=== PATIENT | female | born 1985 | race African-American/Black ===

== ENCOUNTER 2016-11-12 15:23 | Observation (INO) | payer BC ==
[~2016-11-12] VITALS: Ht 172.7 cm; Wt 100.0 kg
[~2016-11-12 15:23] MED LIST: PREN0.01 PO
[2016-11-12 15:29] VITALS: BP 120/75; PULSE 68; RESP 22; TEMP 97.8; O2SAT 100
[2016-11-12 15:41] VITALS: RESP 20; O2SAT 100
[2016-11-12] MEDS ORDERED: LORazepam 2 MG/ML VIAL IV PUSH ONE (15:45)
[2016-11-12] MEDS ORDERED: SODIUM CHLORIDE 0.9% FLUSH 10 ML FLUSH IVF PRN (15:45)
--- NOTE | 2016-11-12 15:49 | PD ---
HPI Chief Complaint: Chest Pain Time Seen by Provider: 15:35 Travel History International Travel<30 days: No Contact w/Intl Traveler<30days: No Traveled to known affect area: No History of Present Illness HPI This is a 31-year-old female with no significant past medical history presents via EMS for evaluation of chest pain. Symptoms were this morning at 7 AM when she was sitting feeding her child. She describes it as a substernal chest pressure which is constant, no relieving factors. Somewhat aggravated by inspiration. She does endorse some anxiety in regards to recently moving here from [facility]. She was seen at an urgent care center and sent here via EMS for further evaluation. She received 1 sublingual nitroglycerin via EMS and full dose aspirin at the urgent care center. In addition to the chest pressure she is experiencing some nausea and lightheadedness. She denies any cough or congestion, shortness of breath, abdominal pain, vomiting, fevers or chills, unilateral calf pain or swelling, headache, blurred vision. She denies any drug use. No tobacco use. No family history of cardiac disease. No personal history of coronary artery disease, hypertension, diabetes, hyperlipidemia. She does report that she has been traveling around the country for work on a regular basis over the past several months, primarily via airplane. No other complaints. PFSH Past Medical History Cancer: No Diabetes: No Hepatitis: No Hiatal Hernia: No Hypertension: No Respiratory: No Thyroid Disease: No Dilation and Curettage (D&C): Yes (AND OTHER PROCEEDURES) Past Surgical History Cardiac Surgery: Yes (HEART SX AN INFANT (NOT SURE WHAT SX )) Gynecologic Surgery: Yes Oral Surgery: Yes (EGD) Pacemaker: No Other Surgery: Yes (FILOPEAN TUBES OPENED, OVARIAN CYSTS REMOVED 12/2011) Social History Alcohol Use: Yes (OCC) Tobacco Use: No Substance Use: No Allergies-Medications (Allergen,Severity, Reaction): Coded Allergies: No Known Allergies (Unverified , 12/19/13) Reported Meds & Prescriptions Reported Meds & Active Scripts Active No Active Prescriptions or Reported Medications Review of Systems Except as stated in HPI: all other systems reviewed are Neg Physical Exam Narrative GENERAL: Well-developed well-nourished female in no acute distress. She seems anxious on initial examination. SKIN: Warm and dry. HEAD: Atraumatic. Normocephalic. EYES: Pupils equal and round. No scleral icterus. No injection or drainage. ENT: No nasal bleeding or discharge. Mucous membranes pink and moist. NECK: Trachea midline. No JVD. CARDIOVASCULAR: Regular rate and rhythm. No murmur appreciated. RESPIRATORY: No accessory muscle use. Clear to auscultation. Breath sounds equal bilaterally. GASTROINTESTINAL: Abdomen soft, non-tender, nondistended. Hepatic and splenic margins not palpable. MUSCULOSKELETAL: No obvious deformities. There is no Lower extremity pitting edema. Negative Homans. NEUROLOGICAL: Awake and alert. No obvious cranial nerve deficits. Motor grossly within normal limits. Normal speech. PSYCHIATRIC: Appropriate mood and affect; insight and judgment normal. Data Data Last Documented VS Vital Signs Date Time Temp Pulse Resp B/P Pulse Ox O2 Delivery O2 Flow Rate FiO2 11/12/16 19:50 86 18 115/70 97 Room Air 11/12/16 15:29 97.8 Orders Electrocardiogram (11/12/16 15:34) Basic Metabolic Panel (Bmp) (11/12/16 15:34) Ckmb (Isoenzyme) Profile (11/12/16 15:34) Complete Blood Count With Diff (11/12/16 15:34) D-Dimer (11/12/16 15:34) Magnesium (Mg) (11/12/16 15:34) Prothrombin Time / Inr (Pt) (11/12/16 15:34) Act Partial Throm Time (Ptt) (11/12/16 15:34) Troponin I (11/12/16 15:34) Chest, Single Ap (11/12/16 15:34) Ecg Monitoring (11/12/16 15:34) Bilateral Bp Monitoring (11/12/16 15:34) Iv Access Insert/Monitor (11/12/16 15:34) Oximetry (11/12/16 15:34) Oxygen Administration (11/12/16 15:34) Sodium Chloride 0.9% Flush (Ns Flush) (11/12/16 15:45) Ed Urine Pregnancytest Poc (11/12/16 15:34) Lorazepam Inj (Ativan Inj) (11/12/16 15:45) Ondansetron Inj (Zofran Inj) (11/12/16 16:00) CKMB (11/12/16 15:45) CKMB% (11/12/16 15:45) Ct Pulmonary Angiogram (11/12/16 17:07) Iohexol 350 Inj (Omnipaque 350 Inj) (11/12/16 17:49) Ketorolac Inj (Toradol Inj) (11/12/16 18:15) Acetaminophen (Tylenol) (11/12/16 20:00) Admit Order (Ed Use Only) (11/12/16 19:57) Activity Bed Rest With Brp (11/12/16 19:57) Vital Signs (Adult) Q4H (11/12/16 19:57) Cardiac Rhythm .As Directed (11/12/16 19:57) Notify Dr: Other .PRN (11/12/16 19:57) Notify DrCurt Parameters (11/12/16 19:57) Resp Oxygen Nasal Cannula (11/12/16 ) Ckmb (Isoenzyme) Profile (11/12/16 19:57) Ckmb (Isoenzyme) Profile (11/12/16 22:57) Troponin I (11/12/16 19:57) Troponin I (11/12/16 22:57) Electrocardiogram (11/12/16 19:57) Electrocardiogram (11/12/16 22:57) ^ Obtain (11/12/16 19:57) Sodium Chloride 0.9% Flush (Ns Flush) (11/12/16 20:00) Sodium Chloride 0.9% Flush (Ns Flush) (11/12/16 21:00) Acetaminophen (Tylenol) (11/12/16 20:00) Ondansetron Inj (Zofran Inj) (11/12/16 20:00) Pasteurizer Helper / Telemetry JUICE.Q8H (11/12/16 19:57) Npo After Midnight W/ Po Meds (11/13/16 Breakfast) Ondansetron Inj (Zofran Inj) (11/12/16 20:00) Diet Heart Healthy (11/12/16 Dinner) Labs Laboratory Tests Test 11/12/16 15:45 White Blood Count 5.0 TH/MM3 Red Blood Count 3.86 MIL/MM3 Hemoglobin 11.4 GM/DL Hematocrit 33.7 % Mean Corpuscular Volume 87.3 FL Mean Corpuscular Hemoglobin 29.4 PG Mean Corpuscular Hemoglobin 33.7 % Concent Red Cell Distribution Width 13.9 % Platelet Count 285 TH/MM3 Mean Platelet Volume 9.1 FL Neutrophils (%) (Auto) 42.4 % Lymphocytes (%) (Auto) 42.7 % Monocytes (%) (Auto) 12.2 % Eosinophils (%) (Auto) 2.0 % Basophils (%) (Auto) 0.7 % Neutrophils # (Auto) 2.1 TH/MM3 Lymphocytes # (Auto) 2.1 TH/MM3 Monocytes # (Auto) 0.6 TH/MM3 Eosinophils # (Auto) 0.1 TH/MM3 Basophils # (Auto) 0.0 TH/MM3 CBC Comment DIFF FINAL Differential Comment Prothrombin Time 11.4 SEC Prothromb Time International 1.0 RATIO Ratio Activated Partial 25.1 SEC Thromboplast Time D-Dimer Quantitative (PE/DVT) 0.75 MG/L FEU Sodium Level 139 MEQ/L Potassium Level 4.2 MEQ/L Chloride Level 104 MEQ/L Carbon Dioxide Level 28.6 MEQ/L Anion Gap 6 MEQ/L Blood Urea Nitrogen 14 MG/DL Creatinine 0.93 MG/DL Estimat Glomerular Filtration 85 ML/MIN Rate Random Glucose 85 MG/DL Calcium Level 9.0 MG/DL Magnesium Level 2.0 MG/DL Total Creatine Kinase 464 U/L Creatine Kinase MB 3.7 NG/ML Creatine Kinase MB % 0.8 % Troponin I LESS THAN 0.02 NG/ML MDM Medical Decision Making Medical Screen Exam Complete: Yes Emergency Medical Condition: Yes Medical Record Reviewed: Yes Interpretation(s) EKG sinus rhythm, LBBB BMP unremarkable CK 464 Troponin negative Differential Diagnosis Anxiety, acute coronary syndrome, pulmonary embolism, aortic dissection, myocarditis, pericarditis, spontaneous pneumothorax, versus Narrative Course 31-year-old female with no significant past medical history presents with several hours duration of substernal chest pressure, anxiety, nausea and lightheadedness. The patient was placed on ECG monitoring and pulse oximetry. A 12-lead EKG was obtained. Plan is for basic lab work, chest x-ray. She'll be given a small dose of Ativan as well as Zofran for symptom relief. Discussed with my attending who agrees with care. Laboratory imaging studies have been reviewed. The chest x-ray does reveal cardiomegaly with mild increased interstitial markings. She doesn't have any clinical evidence of pneumonia or fluid overload. Her d-dimer was mildly elevated at 0.[address] pulmonary angiogram has been ordered. Her total CK is 464 with normal CK-MB percentage. Troponin is normal. CBC reveals a hemoglobin 11.4. CT pulmonary angiogram is negative for pulmonary embolism however incidentally reveals cardiomegaly.. The patient was given a copy of her results and encouraged to follow up with primary care physician, possibly for outpatient echocardiogram for further evaluation of this finding. She will be given Toradol for her discomfort. Reassuringly this patient has no discernible risk factors for acute coronary syndrome and her heart score is 1. 2000: Initially this patient was to be discharged however she had persistent substernal squeezing chest pain, therefore I discussed with my attending who recommends admission to the chest pain center. The patient is quite agreeable to this. Procedures EKG Prior to Arrival: Yes Diagnosis Primary Impression: Chest pain Qualified Code: R07.9 - Chest pain, unspecified type Admitting Information Admitting Physician Requests: Observation Additional Instructions: Take ibuprofen as needed for discomfort. As discussed, follow-up with primary care physician regarding the cardiomegaly finding on imaging. Return for any acutely new or worsening symptoms. Scripts No Active Prescriptions or Reported Meds Giovani Xiong Nov 12, 2016 15:49
[2016-11-12] MEDS ORDERED: ONDANSETRON HCL 4 MG/2 ML VIAL IV PUSH ONE ×2 (16:00→20:00)
[2016-11-12 16:46] LABS: AUTOMATED NEUTROPHIL # 2.1 TH/MM3 (1.8-7.7); BASOPHIL % 0.7 % (0.0-2.0); EOSINOPHIL # 0.1 TH/MM3 (0-0.4); HEMATOCRIT 33.7 % (35.0-46.0); HEMO FLAGS DIFF FINAL; LYMPH % 42.7 % (9.0-44.0); LYMPHOCYTE # 2.1 TH/MM3 (1.0-4.8); MEAN CELL VOLUME 87.3 FL (80.0-100.0); MEAN CORPUSCULAR HEMOGLOBIN 29.4 PG (27.0-34.0); MEAN CORPUSCULAR HGB CONC 33.7 % (32.0-36.0); MONO % 12.2 % (0.0-8.0); NEUT % 42.4 % (16.0-70.0); PLATELET COUNT 285 TH/MM3 (150-450); RED BLOOD COUNT 3.86 MIL/MM3 (4.00-5.30); RED CELL DISTRIBUTION WIDTH 13.9 % (11.6-17.2)
[2016-11-12 16:59] LABS: APTT (PATIENT) 25.1 SEC (24.3-30.1); PROTHROMBIN TIME - PATIENT 11.4 SEC (9.8-11.6)
[2016-11-12 17:03] LABS: ANION GAP 6 MEQ/L (5-15); BICARBONATE 28.6 MEQ/L (21.0-32.0); BLOOD UREA NITROGEN 14 MG/DL (7-18); CHLORIDE 104 MEQ/L (98-107); CREATINE KINASE 464 U/L (26-192); GLOMERULAR FILTRATION RATE 85 ML/MIN (>89); POTASSIUM 4.2 MEQ/L (3.5-5.1); SODIUM (NA) 139 MEQ/L (136-145)
--- NOTE | 2016-11-12 17:06 | RADRPT ---
EXAM DATE/TIME: 11/12/2016 16:25 [facility] COMPARISON: No previous studies available for comparison. INDICATIONS : Chest pain. MEDICAL HISTORY : None. SURGICAL HISTORY : None. ENCOUNTER: Initial ACUITY: 1 day PAIN SCORE: 0/10 LOCATION: Bilateral chest FINDINGS: The heart is enlarged. Mild increased perihilar interstitial markings are noted consistent with mild pulmonary vascular congestion versus pneumonia. Clinical correlation is recommended. CONCLUSION: 1. Cardiomegaly. 2. Mild increased perihilar interstitial markings consistent with mild pulmonary vascular congestion versus pneumonia. Clinical correlation is recommended. Milan Boogie MD on November 12, 2016 at 16:46 Board Certified Radiologist. This report was verified electronically.
[2016-11-12 17:18] LABS: CKMB 3.7 NG/ML (0.5-3.6)
[2016-11-12] MEDS ORDERED: IOHEXOL 350 MG/ML 10 ML VIAL (for RAD DIAG) IV ONE (17:49)
--- NOTE | 2016-11-12 17:59 | RADRPT ---
EXAM DATE/TIME: 11/12/2016 17:35 [facility] COMPARISON: No previous studies available for comparison. INDICATIONS : Chest pain. IV CONTRAST: 97 cc Omnipaque 350 (iohexol) IV RADIATION DOSE: 22.90 CTDIvol (mGy) ; Patient body habitus MEDICAL HISTORY : Cardiovascular disease. SURGICAL HISTORY : None. ENCOUNTER: Initial ACUITY: 1 day PAIN SCALE: 4/10 LOCATION: Bilateral chest TECHNIQUE: Volumetric scanning of the chest was performed using a pulmonary embolism protocol MIP images were re constructed. Using automated exposure control and adjustment of the mA and/or kV according to patien t size, radiation dose was kept as low as reasonably achievable to obtain optimal diagnostic quality images. DICOM format image data is available electronically for review and comparison. Follow-up recommendations for incidentally detected pulmonary nodules are based at a minimum on nodul e size and patient risk factors according to Fleischner Society Guidelines. FINDINGS: PULMONARY ARTERIES: No filling defects are seen in the pulmonary arteries through the segmental level. LUNGS: There is no consolidation or pneumothorax . No concerning pulmonary nodule is visualized. PLEURAE: There is no pleural thickening or pleural effusion. MEDIASTINUM: There is good visualization of the great vessels of the middle mediastinum. No evidence of mediastin al or hilar adenopathy/mass. Cardiomegaly is noted. MUSCULOSKELETAL: Within normal limits for patient age. MISCELLANEOUS: The visualized upper abdominal organs demonstrate no acute abnormality. Hepatomegaly is noted. CONCLUSION: 1. No evidence of pulmonary embolism. 2. Cardiomegaly. 3. Hepatomegaly. Milan Boogie MD on November 12, 2016 at 17:56 Board Certified Radiologist. This report was verified electronically.
[2016-11-12] MEDS ORDERED: KETOROLAC TROMETHAMINE 30 MG/ML (IVP) VIAL IV PUSH ONE (18:15)
[2016-11-12 19:50] VITALS: BP 115/70; PULSE 86; RESP 18; O2SAT 97
[2016-11-12] MEDS ORDERED: SODIUM CHLOR 0.9% 1000 ML INJ 1,000 ML IV SCH (20:00)
[2016-11-12] MEDS ORDERED: ONDANSETRON HCL 4 MG/2 ML VIAL IV PRN (20:00)
[2016-11-12] MEDS ORDERED: SODIUM CHLORIDE 0.9% FLUSH 10 ML FLUSH IV FLUSH PRN (20:00)
[2016-11-12] MEDS ORDERED: ACETAMINOPHEN 325 MG TAB PO ONE (20:00)
[2016-11-12] MEDS: SODIUM CHLORIDE 0.9% FLUSH 10 ML FLUSH IV FLUSH SCH (21:00)
[2016-11-12 21:50] LABS: CREATINE KINASE 391 U/L (26-192)
[2016-11-12 22:03] LABS: CKMB 2.4 NG/ML (0.5-3.6)
[2016-11-12] MEDS: ACETAMINOPHEN 500 MG CPLT PO PRN (22:41)
[2016-11-12 22:44] VITALS: BP 124/70; PULSE 70; RESP 17; TEMP 98.6; O2SAT 98
[2016-11-12 23:26] VITALS: BP 116/62; PULSE 72; RESP 18; TEMP 98.5; O2SAT 97
[2016-11-12 23:57] LABS: CREATINE KINASE 366 U/L (26-192)
[2016-11-13 00:10] LABS: CKMB 2.4 NG/ML (0.5-3.6)
[2016-11-13 04:09] VITALS: BP 116/63; PULSE 64; RESP 17; TEMP 97.8; O2SAT 97
[2016-11-13 07:32] VITALS: BP 118/62; PULSE 66; RESP 16; TEMP 98.4; O2SAT 96
[2016-11-13 07:45] VITALS: O2SAT 97
[2016-11-13 08:10] VITALS: PULSE 70
--- NOTE | 2016-11-13 08:25 | HHI.HP ---
HPI Primary Care Physician No Primary Care Physician Chief Complaint Chest pain History of Present Illness This is a 31-year-old female that presents to ED via private vehicle with a complaint of chest discomfort. States that she developed a discomfort about 7: 00 yesterday morning after waking. She first was dizzy. Then she had a sharp chest pain while feeding her baby. This discomfort went away in a couple minutes. It recurred 2 hours later and was short of breath and nauseous with it. Or diaphoresis. She found nothing to bring on the discomfort were to worsen when she has it. She is in the process of moving from [place] for work. Denies history of CAD. Currently takes no medication. She has 1- year-old baby and is not breast-feeding. Review of Systems General: Patient denies fevers, chills recent, and recent travel HEENT: Patient denies headache, sore throat, difficulty swallowing. Cardiovascular: Has the chest discomfort as mentioned above. Denies sensation of heart beating rapidly or irregularly. No syncope. Respiratory: She was short of breath. Denies inspirational chest discomfort. Denies coughing wheezing or hemoptysis. GI: She was nauseous. Patient denies vomiting, diarrhea, abdominal pain, bloody stools. Musculoskeletal: Patient denies joint pain or edema. Denies calf pain or edema. Neurovascular: Patient denies numbness, tingling, weakness in extremities. Denies headache. Endocrine: Denies polyuria and polydipsia. Hematologic: Denies easy bruising. Skin: Denies rash or itching. Past Family Social History Allergies: Coded Allergies: No Known Allergies (Unverified , 12/19/13) Past Medical History Denies hypertension, hyperlipidemia, diabetes, and known CAD. Past Surgical History D&C. Ovarian cyst. Reported Medications Reported Meds & Active Scripts Active No Active Prescriptions or Reported Medications Active Ordered Medications Current Medications Medications (Trade) Dose Ordered Sig/Cristy Route Start Time Stop Time Status Last Admin (NS Flush) 2 ml UNSCH PRN IVF 11/12/16 15:45 11/12/16 16:08 (NS Flush) 2 ml UNSCH PRN IV FLUSH 11/12/16 20:00 (NS Flush) 2 ml BID IV FLUSH 11/12/16 21:00 (Tylenol) 500 mg Q4H PRN PO 11/12/16 20:00 11/12/16 22:41 (Zofran Inj) 4 mg Q6H PRN IV 11/12/16 20:00 (Pneumovax-23 Inj) 25 mcg ONCE ONCE IM 11/13/16 10:00 11/13/16 10:01 Family History Denies family history of CAD. Social History Patient is a nonsmoker. Denies alcohol or illicit drugs. She has a 1-year-old child. Physical Exam Vital Signs Vital Signs Date Time Temp Pulse Resp B/P Pulse Ox O2 Delivery O2 Flow Rate FiO2 11/13/16 07:45 97 21 11/13/16 07:32 98.4 66 16 118/62 96 11/13/16 05:16 21 11/13/16 04:09 97.8 64 17 116/63 97 11/12/16 23:43 18 11/12/16 23:26 98.5 72 18 116/62 97 11/12/16 22:44 98.6 70 17 124/70 98 11/12/16 19:50 86 18 115/70 97 Room Air 11/12/16 15:41 20 100 Room Air 11/12/16 15:41 100 Room Air 11/12/16 15:29 97.8 68 22 120/75 100 Physical Exam GENERAL: This is a well-nourished, well-developed patient, in no apparent distress. Patient speaks in clear complete sentences. Patient is pleasant. HEENT: Head is atraumatic and normocephalic. Neck is supple without lymphadenopathy and trachea is midline. No JVD or carotid bruits. CARDIOVASCULAR: Regular rate and rhythm without murmurs, gallops, or rubs. RESPIRATORY: Clear to auscultation. Breath sounds equal bilaterally. No wheezes , rales, or rhonchi. Chest wall is nontender. No use of accessory muscles. GASTROINTESTINAL: Abdomen is nontender, nondistended. Abdomen soft. No obvious pulsatile mass or bruit. No CVA tenderness. Strong femoral pulses bilaterally. Normal bowel sounds in all quadrants. MUSCULOSKELETAL: Patient is moving upper and lower extremities freely. No calf tenderness or edema, no Homans sign. Strong pulses in upper and lower extremities. NEUROLOGICAL: Patient is alert and oriented. Cranial nerves 2-12 are grossly intact. No focal deficits and speech is clear. SKIN: No rash and turgor is normal. Laboratory Laboratory Tests Test 11/12/16 11/12/16 11/12/16 15:45 21:00 23:15 White Blood Count 5.0 Red Blood Count 3.86 Hemoglobin 11.4 Hematocrit 33.7 Mean Corpuscular Volume 87.3 Mean Corpuscular Hemoglobin 29.4 Mean Corpuscular Hemoglobin 33.7 Concent Red Cell Distribution Width 13.9 Platelet Count 285 Mean Platelet Volume 9.1 Neutrophils (%) (Auto) 42.4 Lymphocytes (%) (Auto) 42.7 Monocytes (%) (Auto) 12.2 Eosinophils (%) (Auto) 2.0 Basophils (%) (Auto) 0.7 Neutrophils # (Auto) 2.1 Lymphocytes # (Auto) 2.1 Monocytes # (Auto) 0.6 Eosinophils # (Auto) 0.1 Basophils # (Auto) 0.0 CBC Comment DIFF FINAL Differential Comment Prothrombin Time 11.4 Prothromb Time International 1.0 Ratio Activated Partial 25.1 Thromboplast Time D-Dimer Quantitative (PE/DVT) 0.75 Sodium Level 139 Potassium Level 4.2 Chloride Level 104 Carbon Dioxide Level 28.6 Anion Gap 6 Blood Urea Nitrogen 14 Creatinine 0.93 Estimat Glomerular Filtration 85 Rate Random Glucose 85 Calcium Level 9.0 Magnesium Level 2.0 Total Creatine Kinase 464 391 366 Creatine Kinase MB 3.7 2.4 2.4 Creatine Kinase MB % 0.8 0.6 0.7 Troponin I LESS THAN 0.02 LESS THAN 0.02 LESS THAN 0.02 Result Diagram: 11/12/16 1545 11/12/16 1545 Imaging Last [address] Angiography 11/12/16 1707 Signed Impressions: Service Date/Time: Saturday, November 12, 2016 17:35 - CONCLUSION: 1. No evidence of pulmonary embolism. 2. Cardiomegaly. 3. Hepatomegaly. Milan Boogie MD Chest X-Ray 11/12/16 1534 Signed Impressions: Service Date/Time: Saturday, November 12, 2016 16:25 - CONCLUSION: 1. Cardiomegaly. 2. Mild increased perihilar interstitial markings consistent with mild pulmonary vascular congestion versus pneumonia. Clinical correlation is recommended. Milan Boogie MD Course EKGs have left bundle branch block. This is new from a prior EKG. Assessment and Plan Assessment and Plan * Chest pain: Alexis Maria Nov 13, 2016 08:25
--- NOTE | 2016-11-13 08:31 | HHI.HP ---
HPI Primary Care Physician No Primary Care Physician History of Present Illness This is a 31-year-old female that presents to ED via private vehicle with a complaint of chest discomfort. States that she developed a discomfort about 7: 00 yesterday morning after waking. She first was dizzy. Then she had a sharp chest pain while feeding her baby. This discomfort went away in a couple minutes. It recurred 2 hours later and was short of breath and nauseous with it. Or diaphoresis. She found nothing to bring on the discomfort were to worsen when she has it. She is in the process of moving from [place] for work. Denies history of CAD. Currently takes no medication. She has 1- year-old baby and is not breast-feeding. Past Family Social History Allergies: Coded Allergies: No Known Allergies (Unverified , 12/19/13) Reported Medications Reported Meds & Active Scripts Active No Active Prescriptions or Reported Medications Active Ordered Medications Current Medications Medications (Trade) Dose Ordered Sig/Cristy Route Start Time Stop Time Status Last Admin (NS Flush) 2 ml UNSCH PRN IVF 11/12/16 15:45 11/12/16 16:08 (NS Flush) 2 ml UNSCH PRN IV FLUSH 11/12/16 20:00 (NS Flush) 2 ml BID IV FLUSH 11/12/16 21:00 (Tylenol) 500 mg Q4H PRN PO 11/12/16 20:00 11/12/16 22:41 (Zofran Inj) 4 mg Q6H PRN IV 11/12/16 20:00 (Pneumovax-23 Inj) 25 mcg ONCE ONCE IM 11/13/16 10:00 11/13/16 10:01 Physical Exam Vital Signs Vital Signs Date Time Temp Pulse Resp B/P Pulse Ox O2 Delivery O2 Flow Rate FiO2 11/13/16 07:45 97 21 11/13/16 07:32 98.4 66 16 118/62 96 11/13/16 05:16 21 11/13/16 04:09 97.8 64 17 116/63 97 11/12/16 23:43 18 11/12/16 23:26 98.5 72 18 116/62 97 11/12/16 22:44 98.6 70 17 124/70 98 11/12/16 19:50 86 18 115/70 97 Room Air 11/12/16 15:41 20 100 Room Air 11/12/16 15:41 100 Room Air 11/12/16 15:29 97.8 68 22 120/75 100 Laboratory Laboratory Tests Test 11/12/16 11/12/16 11/12/16 15:45 21:00 23:15 White Blood Count 5.0 Red Blood Count 3.86 Hemoglobin 11.4 Hematocrit 33.7 Mean Corpuscular Volume 87.3 Mean Corpuscular Hemoglobin 29.4 Mean Corpuscular Hemoglobin 33.7 Concent Red Cell Distribution Width 13.9 Platelet Count 285 Mean Platelet Volume 9.1 Neutrophils (%) (Auto) 42.4 Lymphocytes (%) (Auto) 42.7 Monocytes (%) (Auto) 12.2 Eosinophils (%) (Auto) 2.0 Basophils (%) (Auto) 0.7 Neutrophils # (Auto) 2.1 Lymphocytes # (Auto) 2.1 Monocytes # (Auto) 0.6 Eosinophils # (Auto) 0.1 Basophils # (Auto) 0.0 CBC Comment DIFF FINAL Differential Comment Prothrombin Time 11.4 Prothromb Time International 1.0 Ratio Activated Partial 25.1 Thromboplast Time D-Dimer Quantitative (PE/DVT) 0.75 Sodium Level 139 Potassium Level 4.2 Chloride Level 104 Carbon Dioxide Level 28.6 Anion Gap 6 Blood Urea Nitrogen 14 Creatinine 0.93 Estimat Glomerular Filtration 85 Rate Random Glucose 85 Calcium Level 9.0 Magnesium Level 2.0 Total Creatine Kinase 464 391 366 Creatine Kinase MB 3.7 2.4 2.4 Creatine Kinase MB % 0.8 0.6 0.7 Troponin I LESS THAN 0.02 LESS THAN 0.02 LESS THAN 0.02 Result Diagram: 11/12/16 1545 11/12/16 1545 Imaging Last [address] Angiography 11/12/16 1707 Signed Impressions: Service Date/Time: Saturday, November 12, 2016 17:35 - CONCLUSION: 1. No evidence of pulmonary embolism. 2. Cardiomegaly. 3. Hepatomegaly. Milan Boogie MD Chest X-Ray 11/12/16 1534 Signed Impressions: Service Date/Time: Saturday, November 12, 2016 16:25 - CONCLUSION: 1. Cardiomegaly. 2. Mild increased perihilar interstitial markings consistent with mild pulmonary vascular congestion versus pneumonia. Clinical correlation is recommended. Milan Boogie MD Assessment and Plan Assessment and Plan * Chest pain: Patient has had serial cardiac enzymes and EKGs for ruling out purposes. She was seen by Dr. Kenn Sepulveda of cardiology in the chest and wallis. Her left bundle branch block is new from prior EKG. We will get a 2-D echo and a nuclear ETT. Further plan pending results of the studies. Patient is stable at this time. She is agreeable to this plan. Alexis Maria Nov 13, 2016 08:31
[2016-11-13] MEDS ORDERED: PNEUMOCOCCAL POLYVALENT INJ 25 MCG/0.5 ML SYR IM ONE (10:00)
[2016-11-13] MEDS ORDERED: INFLUENZA VIRUS VACCINE (QUADRIVALENT) 0.5 ML SYR IM ONE (10:00)
[2016-11-13 11:51] VITALS: BP 109/66; PULSE 76; RESP 18; TEMP 96.7; O2SAT 97
[2016-11-13] MEDS: ACETAMINOPHEN 500 MG CPLT PO PRN (12:10)
[2016-11-13] MEDS: SODIUM CHLORIDE 0.9% FLUSH 10 ML FLUSH IV FLUSH SCH (12:11)
[2016-11-13 12:15] VITALS: PULSE 77
--- NOTE | 2016-11-13 12:23 | RADRPT ---
EXAM DATE/TIME: 11/13/2016 09:05 [facility] COMPARISON: CHEST SINGLE AP, November 12, 2016, 16:25. CT PULMONARY ANGIOGRAM, November 12, 2016, 17:35. INDICATIONS : Substernal chest pain with nausea and lightheadedness. Angina DOSE: 35 mCi Tc99m Myoview at stress 10.9 mCi Tc99m Myoview at rest REST HEART RATE: 83 BPM TARGET HEART RATE: 160 BPM MAX HEART RATE: 162 BPM REST BLOOD PRESSURE: 126/72 mmHg MAX BLOOD PRESSURE: 117/72 mmHg EJECTION FRACTION: 42% MEDICAL HISTORY : None SURGICAL HISTORY : None. ENCOUNTER: Initial ACUITY: 1 day PAIN SCALE: 5/10 LOCATION: Substernal chest TECHNIQUE: The patient underwent upright treadmill exercise in the chest pain center. Continuous ECG tracing wa s monitored during stress. Gated SPECT imaging was performed after stress, and conventional SPECT im aging was performed at rest. The examination was performed on a SPECT/CT scanner, both attenuation-c orrected and non-corrected datasets were reviewed. FINDINGS: DISTRIBUTION: The maximum perfused segment at stress is in the inferior wall. PERFUSION STUDY: The pattern of perfusion at stress demonstrates a fixed defect in the anteroseptal wall most of it is related to breast attenuation artifact the lateral wall and posterior basal wall appear intact. Ther e is also reduction in perfusion to inferoapical wall which is also fixed. There is activity within b owel which also limits evaluation of posterior basal and inferior wall. GATED STUDY: There is significant hypokinesis involving the anteroseptal wall most likely an area of myocardial in farction in addition to hypokinesis of the inferoapical wall. CONCLUSION: Reduction in ejection fraction and significant hypokinesis of the anteroseptal wall and to a lesser d egree inferoapical wall most likely from prior microinfarctions without any significant ischemia. The examination is however limited due to significant Artifact. RISK CATEGORY: Low (<1% Annual Mortality Rate) Cuong Hampton MD on November 13, 2016 at 12:16 Board Certified Radiologist. This report was verified electronically.
--- NOTE | 2016-11-13 14:49 | EKG ---
Date Performed: 11/12/2016 Time Performed: 23:23:43 PTAGE: 31 years EKG: Sinus rhythm WITH FIRST DEGREE AV BLOCK LEFT BUNDLE BRANCH BLOCK ABNORMAL ECG NO PREVIOUS TRACING DOCTOR: Kenn Sepulveda Interpretating Date/Time 11/13/2016 14:48:20
--- NOTE | 2016-11-13 14:50 | EKG ---
Date Performed: 11/12/2016 Time Performed: 21:35:43 PTAGE: 31 years EKG: Sinus rhythm LEFT BUNDLE BRANCH BLOCK ABNORMAL ECG PREVIOUS TRACING : 11/12/2016 20.58 Since previous tracing, no significant change noted DOCTOR: Kenn Sepulveda Interpretating Date/Time 11/13/2016 14:49:19
--- NOTE | 2016-11-13 14:51 | EKG ---
Date Performed: 11/12/2016 Time Performed: 20:58:17 PTAGE: 31 years EKG: Sinus rhythm LEFT BUNDLE BRANCH BLOCK ABNORMAL ECG PREVIOUS TRACING : 11/12/2016 15.39 Since previous tracing, no significant change noted DOCTOR: Kenn Sepulveda Interpretating Date/Time 11/13/2016 14:49:30
--- NOTE | 2016-11-13 14:52 | EKG ---
Date Performed: 11/12/2016 Time Performed: 15:39:23 PTAGE: 31 years EKG: Sinus rhythm LEFT BUNDLE BRANCH BLOCK ABNORMAL ECG PREVIOUS TRACING : 12/27/2011 08.48 Since previous tracing, no significant change noted DOCTOR: Kenn Sepulveda Interpretating Date/Time 11/13/2016 14:50:01
--- NOTE | 2016-11-13 14:54 | TR ---
Date Performed: 11/13/2016 Time Performed: 10:07:39 DOCTOR: Kenn Sepulveda DRUG LIST: CLINICAL HISTORY: CHEST PAIN REASON FOR TEST: REASON FOR ENDING: OBSERVATION: CONCLUSION: ORI PROTOCOL. NO CP. STOPPED WHEN MAXIMUM HEART RATE REACHED SECONDARY TO SHORTNES S OF BREATH AND LEG FATIGUE.Maximum BH=979 % Max HR Achieved=86.0% Maximum FM=786/72 Total Exercise T nicolasa=9:43 COMMENTS: LBBB present throughout test. Nuclear imaging pending
[2016-11-13] MEDS ORDERED: LISI10TA3 PO (14:58)
--- NOTE | 2016-11-13 14:59 | HHI.DCPOC ---
Discharge Care Plan Diagnosis: (1) Chest pain (2) Cardiomyopathy Goals to Promote Your Health HAVE AN OUTPATIENT HOLTER MONITOR PERFORMED. * To prevent worsening of your condition and complications * To maintain your health at the optimal level Directions to Meet Your Goals Take your medications as prescribed Follow your dietary instruction Follow activity as directed Keep your appointments as scheduled Take your immunizations and boosters as scheduled If your symptoms worsen call your PCP, if no PCP go to Urgent Care Center or Emergency Room Smoking is Dangerous to Your Health. Avoid second hand smoke Call the 24-hour hour crisis hotline for domestic abuse at Alexis Maria Nov 13, 2016 14:59
--- NOTE | 2016-11-13 18:43 | ECHRPT ---
Indication: Cardiomyopathy, unspecified CONCLUSIONS The left ventricular systolic function is ertnksyh-kw-timruyk reduced with an estimated ejection fra ction in the range of 35-40%. There is diffuse global hypokinesis with akinesis to dyskinesis of the anteroseptal wall. Mildly dilated left ventricle. Trivial pulmonary valve regurgitation. BP: / HR: Rhythm: Sinus MEASUREMENTS (Male / Female) Normal Values Technical Quality:Good 2D ECHO LV Diastolic Diameter PLAX 6.0 cm 4.2 - 5.9 / 3.9 - 5.3 cm LV Systolic Diameter PLAX 5.1 cm IVS Diastolic Thickness 1.1 cm 0.6 - 1.0 / 0.6 - 0.9 cm LVPW Diastolic Thickness 0.7 cm 0.6 - 1.0 / 0.6 - 0.9 cm LV Relative Wall Thickness 0.3 RV Internal Dim ED PLAX 1.9 cm LA Systolic Diameter LX 3.4 cm 3.0 - 4.0 / 2.7 - 3.8 cm M-MODE Aortic Root Diameter MM 2.9 cm AV Cusp Separation MM 1.9 cm DOPPLER Mitral E Point Velocity 65.6 cm/s Mitral A Point Velocity 57.8 cm/s Mitral E to A Ratio 1.1 TR Peak Velocity 231.0 cm/s TR Peak Gradient 21.3 mmHg FINDINGS LEFT VENTRICLE Mildly dilated left ventricle. Wall thickness is normal. The left ventricular systolic function is waefgdrv-fj-vettgoi reduced with an estimated ejection fra ction in the range of 35-40%. There is diffuse global hypokinesis with akinesis to dyskinesis of the anteroseptal wall RIGHT VENTRICLE The right ventricular size is normal. LEFT ATRIUM The left atrial size is normal. RIGHT ATRIUM The right atrial size is normal. ATRIAL SEPTUM Normal atrial septal thickness AORTA The aortic root and proximal ascending aorta are normal in size on limited imaging. MITRAL VALVE Structurally normal mitral valve. No mitral valve stenosis or regurgitation. AORTIC VALVE Trileaflet aortic valve. No aortic valve stenosis or regurgitation. TRICUSPID VALVE Structurally normal tricuspid valve. There is trace tricuspid valve regurgitation. No tricuspid valve stenosis. PULMONARY VALVE Trivial pulmonary valve regurgitation. VESSELS The inferior vena cava is normal in size. PERICARDIUM No pericardial effusion. Bello Goldstein DO (Electronically Signed) Final Date:13 November 2016 18:42
== END 2016-11-13 16:05 | disposition home or self-care (01) ==
LOC: NEPC 15:23 → NEDA 20:03 → NEPGCP 21:41
DX: R07.89 Other chest pain (principal); F41.9 Anxiety disorder, unspecified; I44.7 Left bundle-branch block, unspecified; I42.9 Cardiomyopathy, unspecified; R16.0 Hepatomegaly, not elsewhere classified
CPT/HCPCS: 71010; 71275; 78452; 80048; 82550; 82552; 83735; 84484; 84703; 85025; 85379; 85610; 85730; 93005; 93017; 93306; 96374; 96375; 99285; A9502; G0378; J1885; J2060; J2405; J7030; Q9967